=== PATIENT | female | born 1980 | race Two or more races ===

== ENCOUNTER 2017-04-14 00:11 | Emergency (ER) | payer OTHER ==
[~2017-04-14] VITALS: Ht 167.6 cm; Wt 61.1 kg
[2017-04-14] MEDS ORDERED: LORazepam 1MG TABLET ONE (01:28)
[2017-04-14] MEDS ORDERED: LORazepam 1MG TABLET PO ONE (01:30)
[2017-04-14 03:01] VITALS: BP 113/60
== END 2017-04-14 03:03 | disposition home or self-care (01) ==
LOC: ED 02:55
DX: R51 Headache (principal); R20.2 Paresthesia of skin; F41.9 Anxiety disorder, unspecified; F43.0 Acute stress reaction
CPT/HCPCS: 70450; 72125; 99284